=== PATIENT | male | born 1990 | race Caucasian/White ===

== ENCOUNTER 2022-12-09 17:52 | Emergency (ER) | payer SELFPAY ==
[2022-12-09 18:10] VITALS: BP 133/88; PULSE 112; RESP 18; TEMP 36.8; O2SAT 100
--- NOTE | 2022-12-09 20:06 | ED.DENTAL ---
HPI - Dental/Oral General Chief complaint: Dental/Oral Stated complaint: mouth infection Time Seen by Provider: 12/09/22 20:06 Source: patient and RN notes reviewed Mode of arrival: ambulatory Limitations: no limitations History of Present Illness HPI Narrative: This is a 32 year old male who presents for evaluation of dental pain for 1 week. He has pain located to right lower jaw. Pain is sharp and constant. His pain worsened today. He has been taking ibuprofen for his pain. He denies nausea, vomiting, abdominal pain, or melena. HE has not been on antibiotics for 6 months. Related Data Allergies Allergy/AdvReac Type Severity Reaction Status Date / Time No Known Allergies Allergy Unverified 01/11/19 18:21 Review of Systems Review of Systems: All systems reviewed & are unremarkable except as noted in HPI and below PMFSH Past Medical History Medical History (Updated 12/10/22 @ 00:00 by Gypsy Paulino) Patient denies medical problems Social History Social History (Updated 12/09/22 @ 20:15 by Mamta Campuzano MD) Smoking status: Current every day smoker Exam Const: General: no acute distress and alert Nutritional Appearance: well nourished Orientation/consciousness: patient oriented x3 Limitations: no limitations HENMT: Head: normal to inspection Ears: external ears normal Face and sinus: normal facial exam and sinuses nontender Mouth: Yes lip normal and Yes moist mucous membranes Teeth and gingiva: abnormal tooth and associated gingiva (# 31 broken and tender to palpation) Throat: posterior oropharynx normal and uvula midline Eyes: EOM: EOMs intact bilaterally Neck: Neck: normal visual inspection Resp: Effort & Inspection: normal respiratory effort Neuro: General: patient oriented x3, moves all extremities and CN's II-XI intact bilaterally Extrem: General: normal to inspection Psych: Mental Status: mental status grossly normal Affect: normal affect Attitude: cooperative Course Reevaluation(s) Reevaluation #1: I discussed with patient plan to start antibiotics. I also discussed proper dosages of tylenol and ibuprofen to prevent side effects Date: 12/09/22 Time: 20:16 Vital Signs Vital signs: Vital Signs Temperature 98.2 F 12/09/22 18:10 Pulse Rate 112 H 12/09/22 18:10 Respiratory Rate 18 12/09/22 18:10 Blood Pressure 133/88 12/09/22 18:10 Pulse Oximetry 100 12/09/22 18:10 Oxygen Delivery Room Air 12/09/22 18:10 Temperature 98.1 F 12/09/22 20:09 Pulse Rate 66 12/09/22 20:09 Respiratory Rate 17 12/09/22 20:09 Blood Pressure 135/84 12/09/22 20:09 Pulse Oximetry 97 12/09/22 20:09 Oxygen Delivery Room Air 12/09/22 18:10 Discharge Plan Discharge Clinical Impression: Toothache Patient Disposition: Home, Self-Care Condition: Stable Instructions: Antibiotic Form, Dental Abscess (ED), Toothache (ED) Additional Instructions: Please find yourself a dentist. I provided prescription of ibuprofen so please do not take any additional. Take tylenol for your pain as well. Take antibiotics as prescribed. Prescriptions: New ibuprofen 800 mg tablet 800 mg PO TID PRN (Reason: pain) Qty: 20 0RF amoxicillin-pot clavulanate 875-125 mg tablet 1 tablet PO Q12H Qty: 20 0RF Follow-up/Referrals: Dental Referral Line [Outside] [facility] [Outside] [facility] [Outside] Aly Denis MD [Physician] - PHYSICIAN,TRIAGE TECHNICIAN [Primary Care Provider] - Stand Alone Forms: Work/School Release IP
[2022-12-09 20:09] VITALS: BP 135/84; PULSE 66; RESP 17; TEMP 36.7; O2SAT 97
== END 2022-12-09 20:28 | disposition home or self-care (01) ==
PROVIDERS: Emergency Provider General Practice
DX: K08.89 Other specified disorders of teeth and supporting structures (principal)
CPT/HCPCS: 99283